=== PATIENT | male | born 1960 | race Caucasian/White ===

== ENCOUNTER 2018-07-18 08:38 | Emergency (ER) | payer BC ==
[2018-07-18] MEDS: Sodium Chloride 0.9% 10 ML Syringe FLUSH PRN ×2 (09:07→10:02)
--- NOTE | 2018-07-18 09:38 | EDM.PDOC ---
ED HPI GENERAL MEDICAL PROBLEM - General Chief Complaint: Cardiovascular Problem Stated Complaint: CHEST DISCOMFORT Time Seen by Provider: 07/18/18 08:49 Source of Information: Reports: Patient, RN Notes Reviewed - History of Present Illness INITIAL COMMENTS - FREE TEXT/NARRATIVE: 57-year-old male comes in having had 2 episodes of chest discomfort about 18-20 hours ago yesterday. He works as a tow truck driver hauling equipment. He was unloading a combine when he had about a 10 minute episode of sharp fairly severe discomfort anterior chest yesterday afternoon and then did have a second episode about half an hour later. He describes the pain as being sharp, anterior chest without radiation he had no nausea vomiting or diaphoresis. He has had no further chest discomfort since midafternoon yesterday. He does have history of 2 stents placed at [facility] about 12 days ago. 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 He is on aspirin and he is on several other medications as well that the patient could not name at the time of my visit. - Related Data Allergies Allergy/AdvReac Type Severity Reaction Status Date / Time No Known Allergies Allergy Verified 07/02/18 08:34 Home Meds: Home Meds Metoprolol Tartrate 0.5 tab PO BID 07/18/18 [History] Nitroglycerin 0.4 mg SL PRN 07/18/18 [History] Pantoprazole [ProTONIX] 40 mg PO 07/18/18 [History] Prasugrel HCl [Effient] 10 mg PO 07/18/18 [History] atorvaSTATin [Lipitor] 40 mg PO 07/18/18 [History] Past Medical History HEENT History: Reports: Impaired Vision Other HEENT History: wears glasses Cardiovascular History: Reports: High Cholesterol, Hypertension, VT, Stents Gastrointestinal History: Reports: GERD - Past Surgical History GI Surgical History: Reports: EGD Social & Family History - Family History Family Medical History: Noncontributory - Tobacco Use Smoking Status *Q: Never Smoker Second Hand Smoke Exposure: No - Caffeine Use Caffeine Use: Reports: None - Alcohol Use Days Per Week of Alcohol Use: 1 Number of Drinks Per Day: 1 Total Drinks Per Week: 1 - Recreational Drug Use Recreational Drug Use: No ED ROS GENERAL - Review of Systems Review Of Systems: See Below Constitutional: Denies: Fever, Chills, Diaphoresis HEENT: Denies: Sinus Problem, Throat Pain Respiratory: Denies: Shortness of Breath, Wheezing, Pleuritic Chest Pain Cardiovascular: Reports: Chest Pain. Denies: Lightheadedness (Yesterday, gone) , Palpitations, Syncope GI/Abdominal: Denies: Abdominal Pain, Nausea, Vomiting Musculoskeletal: Denies: Shoulder Pain, Arm Pain, Back Pain Skin: Reports: No Symptoms Neurological: Denies: Dizziness, Numbness, Tingling, Weakness ED EXAM, GENERAL - Physical Exam Exam: See Below General Appearance: Alert, No Apparent Distress Eye Exam: Bilateral Eye: PERRL Throat/Mouth: Normal Inspection Head: Atraumatic. No: Facial Swelling Neck: Supple, Full Range of Motion Respiratory/Chest: No Respiratory Distress, Lungs Clear, Normal Breath Sounds, Chest Non-Tender Cardiovascular: Regular Rate, Rhythm GI/Abdominal: Soft, Non-Tender. No: Guarding Back Exam: No: CVA Tenderness (L), CVA Tenderness (R) Extremities: Normal Inspection, Normal Range of Motion. No: Pedal Edema, Leg Pain Neurological: Alert, Oriented, No Motor/Sensory Deficits Skin Exam: Warm, Dry, Normal Color Course - Vital Signs Last Recorded V/S: Last Vital Signs Temp 97.4 F 07/18/18 08:43 Pulse 54 L 07/18/18 08:43 Resp 20 07/18/18 08:43 BP 163/81 H 07/18/18 08:43 Pulse Ox 100 07/18/18 08:43 - Orders/Labs/Meds Orders: Active Orders 24 hr Category Date Time Status EKG 12 Lead [EKG Documentation Completion] [RC] STAT Care 07/18/18 08:58 Active Peripheral IV Care [RC] . DIRECTED Care 07/18/18 08:59 Active Sodium Chloride 0.9% [Saline Flush] Med 07/18/18 08:57 Active 10 ml FLUSH ASDIRECTED PRN Peripheral IV Insertion Adult [OM.PC] Stat Oth 07/18/18 08:58 Ordered Medication Orders Sodium Chloride (Saline Flush) 10 ml FLUSH ASDIRECTED PRN PRN Reason: Keep Vein Open Last Admin: 07/18/18 10:02 Dose: 10 ml Admin: 07/18/18 09:07 Dose: 10 ml Labs: Laboratory Tests 07/18/18 07/18/18 07/18/18 Range/Units 08:55 08:55 14:05 WBC 8.30 (4.23-9.07) K/mm3 RBC 4.36 L (4.63-6.08) M/mm3 Hgb 13.2 L (13.7-17.5) gm/L Hct 40.3 (40.1-51.0) % MCV 92.4 H (79.0-92.2) fl MCH 30.3 (25.7-32.2) pg MCHC 32.8 (32.2-35.5) g/dl RDW Std Deviation 42.3 (35.1-43.9) fL Plt Count 296 (163-337) K/mm3 MPV 9.5 (9.4-12.3) fl Neut % (Auto) 71.4 H (34.0-67.9) % Lymph % (Auto) 19.9 L (21.8-53.1) % Early % (Auto) 7.6 (5.3-12.2) % Eos % (Auto) 0.8 (0.8-7.0) Baso % (Auto) 0.2 (0.1-1.2) % Neut # (Auto) 5.92 H (1.78-5.38) K/mm3 Lymph # (Auto) 1.65 (1.32-3.57) K/mm3 Early # (Auto) 0.63 (0.30-0.82) K/mm3 Eos # (Auto) 0.07 (0.04-0.54) K/mm3 Baso # (Auto) 0.02 (0.01-0.08) K/mm3 Sodium 138 (136-145) mEq/L Potassium 4.1 (3.5-5.1) mEq/L Chloride 105 (98-107) mEq/L Carbon Dioxide 25 (21-32) mEq/L Anion Gap 12.1 (5-15) BUN 14 (7-18) mg/dL Creatinine 1.3 (0.7-1.3) mg/dL Est Cr Clr Drug Dosing 72.01 mL/min Estimated GFR (MDRD) 57 (>60) mL/min BUN/Creatinine Ratio 10.8 L (14-18) Glucose 111 H (74-106) mg/dL Calcium 9.0 (8.5-10.1) mg/dL Total Bilirubin 1.4 H (0.2-1.0) mg/dL AST 9 L (15-37) U/L ALT 19 (16-63) U/L Alkaline Phosphatase 86 (46-116) U/L Troponin I 0.207 H* 0.193 H* (0.00-0.056) ng/mL Total Protein 6.9 (6.4-8.2) g/dl Albumin 3.5 (3.4-5.0) g/dl Globulin 3.4 gm/dL Albumin/Globulin Ratio 1.0 (1-2) Meds: Medications Generic Name Dose Route Start Last Admin Trade Name Freq PRN Reason Stop Dose Admin Sodium Chloride 10 ml 07/18/18 08:57 07/18/18 10:02 Saline Flush FLUSH 10 ml ASDIRECTED PRN Administration Keep Vein Open Discontinued Medications Generic Name Dose Route Start Last Admin Trade Name Freq PRN Reason Stop Dose Admin Aspirin 324 mg 07/18/18 09:58 07/18/18 10:02 Aspirin PO 07/18/18 09:59 324 mg ONETIME ONE Administration - Re-Assessments/Exams Free Text/Narrative Re-Assessment/Exam: 07/18/18 10:18. Troponin did come back elevated at 0.207. He has continued to rest comfortably while here in the ED pain-free. He is continued in sinus rhythm rate running in the mid to upper 50s. I did call [facility], asked to speak to Dr Martinez, his [employer]. I was referred to "Dr Batista" by the one call nurse who was [employer] certified network professional for him. I did discuss the finding of elevated troponin with Dr. Batista, She states that it does take about 2 weeks for the troponin to totally clear out, his VT was about 2 weeks ago. she does recommend keeping him here in the ED, do a 6 hour troponin, make sure that is at least somewhat similar. Patient is reluctantly agreeable to that. He has taken his morning meds. We have given aspirin 324 by mouth. 07/18/18 14:54. Repeat troponin has come back at 0.19. He has been pain-free while here in the ED but becoming very frustrated with the long wait. I discussed that this was following the advice given when I did call for Dr. Martinez. I also discussed with patient that the elevated troponin was abnormal and could not be simply ignored. Patient is being discharged at this time. He states he has called and talked to Dr. Martinez who will see him 10:00 tomorrow morning at his clinic. Departure - Departure Time of Disposition: 14:50 Disposition: Home, Self-Care 01 Condition: Fair Clinical Impression: Atypical chest pain Referrals: PCP,Not In Area [Primary Care Provider] - Forms: ED Department Discharge Additional Instructions: Continue current medications as prescribed. Your initial troponin this morning was elevated at 0.22, Repeat level about 5 1/2 hours later 0.19. Return to ED if having further chest discomfort lasting more than just a few minutes, especially if radiating to left arm or shoulder or if you become weak, lightheaded, sweaty, short of breath or other abnormal symptoms. See Dr. Martinez tomorrow morning as planned. - My Orders Last 24 Hours: My Active Orders 07/18/18 08:57 Sodium Chloride 0.9% [Saline Flush] 10 ml FLUSH ASDIRECTED PRN 07/18/18 08:58 EKG 12 Lead [EKG Documentation Completion] [RC] STAT Peripheral IV Insertion Adult [OM.PC] Stat 07/18/18 08:59 Peripheral IV Care [RC] . DIRECTED - Assessment/Plan Last 24 Hours: My Active Orders 07/18/18 08:57 Sodium Chloride 0.9% [Saline Flush] 10 ml FLUSH ASDIRECTED PRN 07/18/18 08:58 EKG 12 Lead [EKG Documentation Completion] [RC] STAT Peripheral IV Insertion Adult [OM.PC] Stat 07/18/18 08:59 Peripheral IV Care [RC] . DIRECTED
[2018-07-18] MEDS ORDERED: Aspirin 81 MG Tab.Chew PO ONE (09:58)
== END 2018-07-18 15:00 | disposition home or self-care (01) ==
LOC: JD.ED 08:38
DX: R07.89 Other chest pain (principal); E78.00 Pure hypercholesterolemia, unspecified; I10 Essential (primary) hypertension; Z79.899 Other long term (current) drug therapy
CPT/HCPCS: 36415; 80053; 84484; 85025; 93005; 99285; A9270; J7050; 93010; 99284-25

== ENCOUNTER 2023-02-16 09:18 | Emergency (ER) | payer BC, MEDICAID ==
[2023-02-16] MEDS ORDERED: Aspirin 81 MG Tab.Chew PO ONE (10:05)
[2023-02-16] MEDS ORDERED: Sodium Chloride 0.9% 1,000 ML IV SCH (10:15)
[2023-02-16] MEDS: Nitroglycerin 0.4 MG Tab.SL SL PRN ×2 (10:19→11:27)
[2023-02-16] MEDS ORDERED: Isosorbide Mononitrate 30 MG Tab.ER PO ONE (14:56)
== END 2023-02-16 15:54 | disposition home or self-care (01) ==
LOC: JD.ED 09:18
DX: I20.9 Angina pectoris, unspecified (principal); E78.00 Pure hypercholesterolemia, unspecified; I10 Essential (primary) hypertension; I25.2 Old myocardial infarction; K21.9 Gastro-esophageal reflux disease without esophagitis; Z79.899 Other long term (current) drug therapy; Z79.82 Long term (current) use of aspirin
CPT/HCPCS: 36415; 71045; 80053; 84484; 85025; 85610; 85730; 93005; 99285; A9270; J7030; 93010; 99283